=== PATIENT | female | born 1965 | race African-American/Black ===

== ENCOUNTER 2016-08-22 11:46 | Emergency (ER) | payer OTHER ==
[~2016-08-22] VITALS: Ht 152.4 cm; Wt 90.5 kg
[2016-08-22] MEDS ORDERED: AMLO5TAB66 PO (11:54)
[2016-08-22] MEDS ORDERED: GLIP5TAB11 PO (11:54)
[2016-08-22] MEDS ORDERED: LISI10TA7 PO (11:54)
[2016-08-22] MEDS ORDERED: FURO-152 PO (11:54)
[2016-08-22 12:03] VITALS: BP 183/85
[2016-08-22 12:03] LABS: GLUCOSE,POINT OF CARE 112 MG/DL (70-110)
[2016-08-22] MEDS: IBUPROFEN 800 MG TABLET PO ONE ×2 (12:26→12:29)
== END 2016-08-22 12:43 | disposition home or self-care (01) ==
LOC: EMS 11:48
DX: H60.92 Unspecified otitis externa, left ear (principal); E11.9 Type 2 diabetes mellitus without complications; I10 Essential (primary) hypertension; E78.00 Pure hypercholesterolemia, unspecified; F17.210 Nicotine dependence, cigarettes, uncomplicated
CPT/HCPCS: 82962; 99282; 99283